=== PATIENT | male | born 1935 | race Caucasian/White ===

== ENCOUNTER 2023-10-04 06:28 | Day surgery (SDC) | payer MEDICARE, SELFPAY ==
[2023-09-17 10:47] LABS: Urine Albumin Trace (Neg - Trace); Urine Bilirubin Negative (Negative); Urine Character Clear (Clear); Urine Color Yellow; Urine Glucose Negative (Negative); Urine Ketone Negative (Negative); Urine Leukocyte Trace (Negative); Urine Nitrite Negative (Negative); Urine Occult Blood Trace (Negative); Urine Specific Gravity 1.015 (<1.030); Urine Urobilinogen Negative (Neg - 1+)
[2023-09-17 10:55] LABS: Hematocrit 34.4 % (39.0-52.0); Hemoglobin 11.6 g/dL (13.0-18.0); Mean Corp Hgb Conc. 33.7 g/dL (33.0-37.0); Mean Corpuscular Hgb 32.2 pg (27.0-31.0); Mean Corpuscular Volume 95.6 fL (80.0-94.0); Mean Platelet Volume 9.7 fL (7.4-10.4); Platelet Count 179 10^3/uL (130-400); Red Cell Dist. Width 18.5 % (11.5-14.5); White Blood Cell Count 5.6 10^3/uL (4.8-10.8)
[2023-09-17 10:56] LABS: Urine Mucus Few
[2023-09-17 10:57] LABS: Urine Red Blood Cell 0-2 /HPF (0-2); Urine White Cell 0-2 /HPF (0-5)
[2023-09-17 10:59] LABS: Blood Urea Nitrogen 23 mg/dl (9-20); Calcium 8.7 mg/dl (8.4-10.2); Carbon Dioxide 28 mmol/L (22-30); Chloride 103 mmol/L (98-107); Glucose 97 mg/dl (70-99); Potassium 4.6 mmol/L (3.5-5.1); Sodium 134 mmol/L (135-145); eGFR > 60.00
[2023-09-17 11:09] LABS: INR 1.14; PT 14.4 Sec (11.4-14.6)
[2023-09-17 11:10] LABS: APTT 32.4 Sec (23.4-35.0)
[2023-09-17 12:11] VITALS: BMI 25.8
[2023-10-04] VITALS (14 sets, daily range): BP systolic 111–175; BP diastolic 56–100; BMI 25.8
[2023-10-04] MEDS: CYSVIEW KIT 100 MG INTRAVES (08:20)
[2023-10-04] MEDS: NORMOSOL-R 1000 IV (08:38)
[2023-10-04] MEDS: MORPHINE SULFATE 1 MG IV ×2 (10:43→10:54)
[2023-10-04] MEDS: Pyridium 200 MG PO (11:01)
[2023-10-04] MEDS: FLOMAX 0.400000000000000022 MG PO (11:01)
[2023-10-04] MEDS: TYLENOL 650 MG PO (17:04)
--- NOTE | 2023-10-04 17:30 | PTCARENOTE ---
18F Tejada catheter inserted at bed side via sterile technique with 2 RNs. Pt tolerated insertion well. Dr. Lnud at bedside. 75ml thin, bloody drainage emptied. at bed side. Updated patient on plan of care. Denies pain at the moment.
--- NOTE | 2023-10-04 17:53 | PTCARENOTE ---
Per Dr. marrufo ok to d/c home and pts to follow up with office in the morning to decide when to have herrera removed. Dr sigala at bed side, irrigated catheter. Draining clear, blood tinged drainage. Education performed to pt/, teach back
demonstrated with .
--- NOTE | 2023-10-04 18:20 | PTCARENOTE ---
Assisted in teaching pt's how to take care of herrera with leg bag. Per physician and nursing, keeping pt with leg bag to aid his mobility. Explained and had pt's show how to empty the leg bag. Pt's was able to demonstrate successfully
how to drain the leg bag. Given cylinder to drain into. Also given picture with simple directions. Pt and pt's told to call overnight with any concerns or issues or report to ED if needed.
== END 2023-10-04 18:45 | disposition home or self-care (01) ==
LOC: SDS 06:28
PROVIDERS: ATTENDING PHYSICIAN Specialist; FAMILY PHYSICIAN Internal Medicine
DX: C67.9 Malignant neoplasm of bladder, unspecified (principal)
CPT/HCPCS: 52240; C9738; 88307; 36415; 80048; 81003; 81015; 85027; 85610; 85730; 93005; A9589

== ENCOUNTER 2023-10-05 18:44 | Emergency (ER) | payer MEDICARE, SELFPAY ==
[2023-10-05 19:02] VITALS: BP 182/100
[2023-10-05 19:34] LABS: % Basophils 0.5 % (0-2); % Eosinophils 3.9 % (0-6); % Immature Granulocytes 0.7 % (0-0.5); % Lymphocytes 12.4 % (20.5-51.1); % Monocytes 8.5 % (1.7-9.3); Absolute Basophils 0.1 10^3/uL (0-0.2); Absolute Eosinophils 0.4 10^3/uL (0-0.7); Absolute Immature Granulocytes 0.1 10^3/uL (0-0.05); Absolute Lymphocytes 1.2 10^3/uL (1.2-3.4); Absolute Monocytes 0.8 10^3/uL (0.1-0.6); Absolute Neutrophils 7.2 10^3/uL (1.4-6.5); Hematocrit 30.1 % (39.0-52.0); Hemoglobin 10.7 g/dL (13.0-18.0); Mean Corp Hgb Conc. 35.5 g/dL (33.0-37.0); Mean Corpuscular Hgb 32.8 pg (27.0-31.0); Mean Corpuscular Volume 92.3 fL (80.0-94.0); Mean Platelet Volume 9.5 fL (7.4-10.4); Nucleated Red Blood Cells % 0 % (-); Platelet Count 160 10^3/uL (130-400); Red Blood Cell Count 3.26 10^6/uL (4.70-6.10); Red Cell Dist. Width 18.5 % (11.5-14.5); Urine Albumin 3+ (Neg - Trace); Urine Bilirubin 1+ (Negative); Urine Character Slightly Cloudy (Clear); Urine Color Brown; Urine Glucose Negative (Negative); Urine Ketone 1+ (Negative); Urine Leukocyte 1+ (Negative); Urine Nitrite Negative (Negative); Urine Occult Blood 4+ (Negative); Urine Urobilinogen Negative (Neg - 1+); Urine pH 6.5 (5.0-9.0); White Blood Cell Count 9.8 10^3/uL (4.8-10.8)
--- NOTE | 2023-10-05 19:36 | ED.GENMED ---
History of Present Illness
General
Chief Complaint: Male Genito-Urinary Symptoms
Source: patient, records and spouse
Exam Limitations: none
Time Seen by Provider: 10/05/23 19:12
Nursing documentation reviewed up to this point in time: agreed with
Travel History
Have you had any contact with someone who has COVID-19?: No
Do you have any symptoms of coronavirus? Fever > 100 degrees, chills, cough, shortness of breath, sore throat, loss of taste or smell, muscle aches, or headache?: No
History of Present Illness
History of Present Illness:
87 male status post urologic surgery yesterday left without a catheter has not urinated since 11 AM yesterday Herrera placed here with some dark urine patient feeling better has had no fever no nausea or vomiting
Past History
Past History
ED Past Medical History: Cancer (Bladder CA), HTN and Hypercholesterolemia
ED Past Surgical History: Urological
Social History
Tobacco: Non-smoker
Alcohol: None
Drug: None
Personal:
Living: with family
Employment: Retired
Review of Systems
Review of Systems
All Other Systems: Not applicable
Constitutional: Denies fever
: Reports difficulty voiding and dark urine
Musculoskeletal: Reports no symptoms
Skin: Reports no symptoms
Phy Exam
Physical Exam
Physical Exam:
Physical Exam
General: no apparent distress, not acutely ill
Neck: No jaundice
Heart: s1/s2 regular rate and rhythm, no murmur. equal radial pulses.
Lungs: no acute respiratory distress. clear bilaterally
Abdomen: Soft, catheter has been placed, draining dark red-brownish urine
Neuro: alert and oriented. no focal neurological deficits
Skin: no rash
Psychiatric: well kept. interactive and cooperative
Extremities: no edema.
Course
Orders/Labs/Results
Orders:
Orders
10/05/23 19:18
Herrera Placement- Treatment ONCE
Reason for insertion: Acute Retention
10/05/23 19:28
CPK [Creatine Phosphokinase] Urgent
Complete Blood Count/With Diff Urgent
Comprehensive Metabolic Panel Urgent
Urinalysis Reflex To Culture Urgent
Date Specimen was Collected: 10/05/23
Time Specimen was Collected: 19:26
Comment: herrera
Urine Microscopic Reflex Cult Urgent
Urine Culture Urgent
DAYNA Source: U
Specimen Description:
Date Specimen was Collected: 10/05/23
Time Specimen was Collected: 19:26
10/05/23 19:52
0.9% Sodium Chloride 1000 ml [Nss] 1,000 ml IV BOLUS
Abnormal Lab Results
10/05/23
19:28
RBC 3.26 L 10^6/uL
(4.70-6.10)
Hgb 10.7 L g/dL
(13.0-18.0)
Hct 30.1 L %
(39.0-52.0)
MCH 32.8 H pg
(27.0-31.0)
RDW 18.5 H %
(11.5-14.5)
Abs Immat Gran (auto) 0.1 H 10^3/uL
(0-0.05)
Absolute Neuts (auto) 7.2 H 10^3/uL
(1.4-6.5)
Absolute Monos (auto) 0.8 H 10^3/uL
(0.1-0.6)
Immature Gran % 0.7 H %
(0-0.5)
Lymphocytes % 12.4 L %
(20.5-51.1)
Sodium 130 L mmol/L
(135-145)
BUN 35 H mg/dl
(9-20)
Glucose 104 H mg/dl
(70-99)
AST 103 H U/L
(17-59)
Creatine Kinase 1483 H U/L
(55-170)
Total Protein 6.1 L g/dl
(6.3-8.2)
Urine Ketones 1+ A
(Negative)
Ur Occult Blood Reflex 4+ A
(Negative)
Urine Bilirubin 1+ A
(Negative)
Leukocyte Esterase Rfl 1+ A
(Negative)
Urine RBC >100 A /HPF
(0-2)
Urine Albumin (Reflex) 3+ A
(Neg - Trace)
10/05/23 19:28
10/05/23 19:28
Vital Signs
Initial and Last Documented VS:
Initial Vital Signs
Temp Pulse Resp BP Pulse Ox
99.4 F 106 20 182/100 95
10/05/23 19:02 10/05/23 19:02 10/05/23 19:02 10/05/23 19:02 10/05/23 19:02
Last Documented Vital Signs
Temp Pulse Resp BP Pulse Ox
99.4 F 60 18 143/68 97
10/05/23 19:02 10/05/23 21:40 10/05/23 21:40 10/05/23 21:40 10/05/23 21:40
MDM/Problems Addressed
Differential Diagnosis Includes:
Retention clot retention UTI postop retention
MDM/Problems Addressed:
Trouble urine
Chronic conditions affecting care:
Bladder can
Chronic conditions affecting care: Cancer
Acute Exacerbation and/or Progression of Chronic Illness: Cancer
*Pulse Oximetry
Patient hypoxic: no
*Critical Care Note
Total Time (30-74mins, 75-104mins- exclusive of procedures): Not Applicable
Update Note
Update Note:
Update catheter placed by RN without difficulty some dark urine will ask RN to hand irrigate and check labs as he has not urinated in over 24 hours
8 PM, labs noted not entirely clear why CPKs bumped a bit, will hydrate
9:45 PM urine is clearing, briefly reviewed with urology will have him follow-up in the office with a catheter
ED Attending Note
-
Portions of this chart may have been created with voice recognition software.� Occasional wrong word or��sound alike� substitutions may have occurred due to the inherent limitations of voice recognition software.
Discharge Plan
Departure
Patient Disposition: Home (Routine Discharge)
Date of Disposition: 10/05/23
Time of Disposition: 21:43
Patient with high blood pressure during this ER visit?: No
Condition: Good
Discharge Problem:
Acute urinary retention
Instructions: How to Care for Your Herrera Catheter, Male, Urinary Retention (DC)
Prescriptions:
No Action
atorvastatin 40 MG tablet
40 mg PO HS
Patient Comments:
pt does not remember
tamsulosin 0.4 MG capsule
0.8 mg PO BID
donepezil 10 MG tablet
10 mg PO HS
aspirin 81 MG tablet,delayed release (DR/EC)
81 mg PO DAILY
multivitamin with folic acid [Tab-A-Kelli] 1 TABLET tablet
1 tab PO DAILY
fexofenadine [Eleni] 180 mg Tablet
180 mg PO DAILY
Referrals:
Anjel Oscar MD [Family Provider] -
Taqueria Jeff MD [Active] - Next open appointment
Activity Restrictions/Additional Instructions:
Drink plenty of fluids, call Dr. Jeff's office Sunday to arrange follow-up
Interventions
Interventions:
*Risk Screen - Suicide Last Done: 10/05/23 19:02
*General Assessment Last Done: 10/05/23 19:02
*Neglect/Abuse Screening Last Done: 10/05/23 19:02
ED- Fall Risk Assessment Last Done: 10/05/23 19:02
*ED COVID-19 Vaccine History Last Done: 10/05/23 19:02
ED-Male Genitourinary Assessment Last Done: 10/05/23 19:26
Discharge Date and Time
Print Language: [place]
[2023-10-05 19:40] LABS: Urine Red Blood Cell >100 /HPF (0-2); Urine Squamous Cell 0-2 /LPF (Few)
[2023-10-05 19:50] VITALS: BP 131/69
[2023-10-05 19:51] LABS: ALT (SGPT) 36 U/L (0-50); AST (SGOT) 103 U/L (17-59); Albumin 3.7 g/dl (3.5-5.0); Alkaline Phosphatase 53 U/L (38-126); Blood Urea Nitrogen 35 mg/dl (9-20); Calcium 8.6 mg/dl (8.4-10.2); Carbon Dioxide 24 mmol/L (22-30); Chloride 101 mmol/L (98-107); Creatine Phosphokinase 1483 U/L (55-170); Glucose 104 mg/dl (70-99); Potassium 4.2 mmol/L (3.5-5.1); Sodium 130 mmol/L (135-145); Total Bilirubin 0.8 mg/dl (0.2-1.3); Total Protein 6.1 g/dl (6.3-8.2); eGFR 53.17
[2023-10-05] MEDS: NSS 1000 IV (20:00)
--- NOTE | 2023-10-05 20:00 | EDRN ---
Per ER Dr Laguerre verbal order, this CLIENT RELATIONSHIP EXECUTIVE manually irrigated this pts bladder with 250ml NSS via 16 [place] Tejada catheter that was paced in the ER due to urinary retention. Many small blood clots were noted. ER Dr Laguerre was notified of above.
[2023-10-05 21:40] VITALS: BP 143/68
[2023-10-05] MEDS: VALIUM 2 MG PO (22:08)
--- NOTE | 2023-10-05 22:13 | EDRN ---
per ER Dr Laguerre verbal order, this PAPER SHEETER attached a leg bag to this pts indwelling herrera catheter at time of discharge home. The pt and spouse was given instruction on correct use of leg bag and how to care for herrera catheter at home.
== END 2023-10-05 22:16 | disposition home or self-care (01) ==
LOC: EMR 18:44
PROVIDERS: EMERGENCY PHYSICIAN Emergency Medicine; FAMILY PHYSICIAN Internal Medicine
DX: R33.9 Retention of urine, unspecified (principal); Z85.51 Personal history of malignant neoplasm of bladder
CPT/HCPCS: 99284; 96360; 51702; 80053; 81003; 81015; 82550; 85025; 87086